=== PATIENT | male | born 1955 | race Caucasian/White ===

== ENCOUNTER 2024-11-02 20:44 | Emergency (ER) | payer MEDICARE, SELFPAY ==
[2024-11-02 20:49] VITALS: BP 157/83; PULSE 84; RESP 18; TEMP 37.4; O2SAT 94; BMI 18.8
--- NOTE | 2024-11-02 21:02 | XR_ITS ---
Examination:Right hip AP, lateral, AP pelvis 3 views Technique: Hip AP lateral, AP pelvis, 3 views Exam date and time:November 02, 2024 10:25 PM INDICATIONS: Patient fell yesterday with injury to the hip, hip pain. FINDINGS: Acute angulated intertrochanteric fracture right hip Avulsion of the lesser trochanter No dislocation of the hip Left hip bones of the pelvis intact IMPRESSION: Acute intertrochanteric fracture right hip.
--- NOTE | 2024-11-02 21:02 | XR_ITS ---
Examination: Right femur 2 views TECHNIQUE: AP lateral right femur 2 views Date and time: November 02, 2024 1027 hours INDICATIONS: Patient fell 1 day ago with injury to the femur, hip pain FINDINGS: Acute angulated intertrochanteric fracture right hip A portion of the lesser trochanter No dislocation Shaft of the femur are intact IMPRESSION: Acute intertrochanteric fracture right hip
--- NOTE | 2024-11-02 21:27 | PD.EDEXREM ---
ED Extremity Problem RME/HPI General Chief complaint: Hip Injury/Pain Stated complaint: HIP PAIN Time Seen by Provider: 11/02/24 20:59 Arrival date/time: 11/02/24 20:44 RME / HPI RME / HPI Narrative: 69-year-old male patient homeless, with significant history of COPD was brought in by EMS for evaluation regarding ground-level fall. Patient sustained a fall yesterday onto concrete resulting to pain to the right hip resulting to deformity, swelling, severity moderate. Patient denies any head injury or other injury. Patient is unable to ambulate due to pain. No medication was taken prior to arrival. Related Data Previous Rx's ?Medication ?Instructions ?Recorded albuterol sulfate 90 mcg/actuation 2 inh inhalation Q4H PRN shortness 04/20/22 aerosol inhaler of breath or wheezing #8.5 grams albuterol sulfate 90 mcg/actuation 2 inh inhalation Q4H PRN shortness 04/26/22 breath activated powder inhaler of breath or wheezing #1 ea amoxicillin 875 mg-potassium 1 tab PO BID #14 tabs 04/26/22 clavulanate 125 mg tablet doxycycline hyclate 100 mg capsule 100 mg PO BID #14 caps 04/26/22 prednisone 50 mg tablet 50 mg PO QDAY #7 tabs 06/18/22 albuterol sulfate 90 mcg/actuation 2 puff inhalation Q4H PRN 05/03/23 aerosol inhaler shortness of breath or wheezing #8.5 grams ciprofloxacin HCl 500 mg tablet 500 mg PO BID #20 tabs 05/03/23 Allergies Allergy/AdvReac Type Severity Reaction Status Date / Time No Known Allergies Allergy Verified 04/20/22 16:08 Review of Systems Review of Systems Narrative Review of Systems: Review of system reviewed and within normal limits except mentioned in HPI ED Exam Narrative Physical exam: VITAL SIGNS: Reviewed. GENERAL APPEARANCE: Alert and interactive, follows commands, no acute distress, HEAD AND FACE: Non-traumatic. ENT: PERRL, pink conjunctivitis, eyelid no trauma, Mucous membrane moist. NECK: Supple, nontender, no nuchal rigidity. CHEST: No tenderness, no crepitus, no paradoxical movement, no retractions. LUNGS: Clear, well ventilated, symmetric, no rales, no wheezing, no ronchi, no stridor, good breath sounds bilaterally. HEART: Regular rate, regular rhythm, no murmur, no gallops. ABDOMEN: Soft, positive bowel sounds, nondistended, no guarding, nontender, no rebound, no masses, RECTAL: Deferred. GENITAL: Deferred. NEUROLOGICAL: Gross motor function intact sensory function intact, Appropriate for age. MUSCULOSKELETAL: low back nontender, full range of motion. EXTREMITIES: Right hip swelling, deformity, tenderness, external rotated, with limitation range of motion. Distal neurovascular status intact SKIN: Color pink, dry, no rash, no lacerations, no abrasions, no contusions. LYMPHATICS: Deferred. Course Quality Measures none Orders Category Date Time Status XR femur RT 2V Stat Exams 11/02/24 21:02 Completed XR hip RT w pelvis 2-3V Stat Exams 11/02/24 21:02 Completed BMP [Basic Metabolic Panel] Stat Lab 11/02/24 21:40 Completed CBC Stat Lab 11/02/24 21:40 Completed Drug Screen,Urine Stat Lab 11/03/24 01:10 Completed PT [Prothrombin Time with INR] Stat Lab 11/02/24 21:40 Completed PTT [Partial Thromboplastin Time] Stat Lab 11/02/24 21:40 Completed Ketorolac Inj [Toradol Inj] Med 11/02/24 23:20 Discontinued 30 mg IVP X1 ONE MethylPREDNISolone.* [SoluMEDROL Inj] Med 11/03/24 01:04 Discontinued 125 mg IVP X1 ONE Morphine Inj Med 11/02/24 21:32 Discontinued 4 mg IVP X1 ONE Ondansetron Odt [Zofran Odt] Med 11/02/24 21:32 Discontinued 4 mg PO X1 ONE Vital Signs Vital signs: Vital Signs Temperature 99.3 F 11/02/24 20:49 Pulse Rate 84 11/02/24 20:49 Respiratory Rate 18 11/02/24 20:49 Blood Pressure 157/83 H 11/02/24 20:49 Pulse Oximetry (%) 94 L 11/02/24 20:49 Oxygen Delivery Method Room Air 11/02/24 20:49 Extremity Problem MDM Narrative MDM Narrative:: 69-year-old male patient homeless, with significant history of COPD was brought in by EMS for evaluation regarding ground-level fall. Patient sustained a fall yesterday onto concrete resulting to pain to the right hip resulting to deformity, swelling, severity moderate. Patient denies any head injury or other injury. Patient is unable to ambulate due to pain. No medication was taken prior to arrival. X-ray of the right hip showed intertrochanteric fracture with angulation. There is of the labs unremarkable. Patient is to be transferred to higher level of care with to have an orthopedic surgeon on-call today. Care transfered to Dr Funez for final disposition Patient data External records reviewed:: None Clinical information provided by:: patient Social determinants that could affect healthcare access:: none Patient has the following chronic illnesses:: COPD How is presenting disease/condition affected by chronic disease/condition?: uneffected by Evaluation data The following diagnostics were reviewed and interpreted by me:: lab results and radiology exam(s) Lab and/or radiology exams considered but not ordered:: None Interpretation Summary: See results MDM Medications / Prescriptions Medications or Prescriptions considered but not ordered:: None Medication administrations:: Medication Administration History Discontinued Medications Ketorolac Tromethamine (Ketorolac Inj 30 Mg/Ml Vial) 30 mg IVP X1 ONE Stop: 11/02/24 23:21 Last Admin: 11/03/24 02:47 Dose: 30 mg Documented By: SE Methylprednisolone Sodium Succinate (Methylprednisolone Sod Succ 62.5 Mg/Ml 2ml Vial) 125 mg IVP X1 ONE Stop: 11/03/24 01:05 Last Admin: 11/03/24 02:48 Dose: 125 mg Documented By: SE Morphine Sulfate (Morphine Sulf Inj 10 Mg/Ml Vial) 4 mg IVP X1 ONE Stop: 11/02/24 21:33 Last Admin: 11/02/24 21:58 Dose: 4 mg Documented By: MM Ondansetron HCl (Ondansetron Odt 4 Mg Tabrap) 4 mg PO X1 ONE; Protocol Stop: 11/02/24 21:33 Last Admin: 11/02/24 21:59 Dose: 4 mg Documented By: MM Morphine, Solu-Medrol, Toradol, and Zofran Consultations Consultation(s) initiated? (list below): No Diagnosis Extremity Problem Differential Diagnosis: other (Femur fracture hip fracture pelvic fracture) Most likely diagnosis given after review of the tests above:: Closed intertrochanteric fracture of the right hip Admission Indicated Admission indicated?: not indicated Admission Request Was there a request for admission?: No Disposition Plan Disposition Plan: Transfer Discharge Plan Plan Patient Disposition: Xfer Acute Care [facility] Facility Pt Being Transferred to: [facility] [place] Service Needed for Transfer: Orthopedics Discharge Disposition comment: Accepted by Dr. Pop, trauma surgeon Patient condition on transfer: Stable Prescriptions/Referrals Prescriptions/Med Rec: No Action albuterol sulfate 90 mcg/actuation HFA aerosol inhaler 2 inh inhalation Q4H PRN (Reason: shortness of breath or wheezing) Qty: 8.5 0RF albuterol sulfate 90 mcg/actuation HFA aerosol inhaler 2 puff inhalation Q4H PRN (Reason: shortness of breath or wheezing) Qty: 8.5 0RF ciprofloxacin HCl 500 mg tablet 500 mg PO BID Qty: 20 0RF doxycycline hyclate 100 mg capsule 100 mg PO BID Qty: 14 0RF amoxicillin-pot clavulanate 875-125 mg tablet 1 tab PO BID Qty: 14 0RF albuterol sulfate 90 mcg/actuation aerosol powdr breath activated 2 inh inhalation Q4H PRN (Reason: shortness of breath or wheezing) Qty: 1 1RF prednisone 50 mg tablet 50 mg PO QDAY Qty: 7 0RF Referrals: Oracio Diaz MD [Primary Care Provider] - In 1 week Problem List Clinical Impression: Closed intertrochanteric fracture of right hip, History of COPD, Positive urine drug screen Patient/Caregiver Discharge Instructions Print Language: Swazi Stand Alone Forms: [facility] Award Info., Patient Portal Info Letter
[2024-11-02 21:38] VITALS: PULSE 81; RESP 18; O2SAT 96
[2024-11-02] MEDS: MORPHINE SULF INJ 10 MG/ML VIAL 4 MG IVP (21:58)
[2024-11-02] MEDS: ONDANSETRON ODT 4 MG TABRAP PO (21:59)
[2024-11-02 22:06] LABS: Basophils % (Auto) 0 % (0-2.5); Eosinophils % (Auto) 0 % (0-10); Hematocrit 37.9 % (41.0-53.0); Hemoglobin 12.6 g/dL (13.5-16.0); Immature Granulocytes % (Auto) 0 % (0-0); Immature Granulocytes Auto 0.05 Thou/mm3 (0.00-0.00); Lymphocytes # (Auto) 1.7 Thou/mm3 (1.0-4.8); Lymphocytes % (Auto) 15 % (10-50); Mean Corpuscular HGB Conc 33.2 g/dl (31.0-37.0); Mean Corpuscular Hemoglobin 29.9 pg (25.0-35.0); Mean Corpuscular Volume 90 fL (80-100); Monocytes # (Auto) 1.1 Thou/mm3 (0.0-0.8); Monocytes % (Auto) 10 % (0-12); Neutrophils # (Auto) 8.5 Thou/mm3 (1.8-7.7); Neutrophils % (Auto) 75 % (37-80); Nucleated Red Blood Cell % 0 /100 WBC (0); Platelet Count 321 Thou/mm3 (140-440); RDW Standard Deviation 46.9 fL (35.1-43.9); Red Blood Count 4.21 Miln/mm3 (4.50-5.90); White Blood Count 11.4 Thou/mm3 (3.8-10.6)
[2024-11-02 22:20] LABS: Anion Gap 11 (7-16); BUN/Creatinine Ratio 15 Ratio (12-20); Blood Urea Nitrogen 20 mg/dL (9-23); Calcium 8.9 mg/dL (8.3-10.6); Chloride 101 mMol/L (98-107); Creatinine (Component) 1.3 mg/dL (0.6-1.3); Estimated Creatinine Clearance 42.5 mL/min (>60); Glucose 101 mg/dL (74-106); Osmolality,Calculated 278 (275-295); Potassium 3.7 mMol/L (3.4-5.1); Sodium 138 mMol/L (136-145); eGFR > 60 See Note
[2024-11-02 22:22] LABS: INR 1.2 (0.9-1.3); Partial Thromboplastin Time 30.5 Seconds (22.0-36.0); Prothrombin Time 12.8 Seconds (9.0-12.2)
[2024-11-02 23:02] VITALS: BP 153/79; PULSE 83; RESP 18; TEMP 37.7; O2SAT 90
--- NOTE | 2024-11-03 00:31 | EDNOTE_ITS ---
Emergency Room Addendum Addendum Narrative: 2300: Care assumed from Jorje Ontiveros NP. Past medical, surgical, social and family history reviewed. Vitals and home medications reviewed. Results and treatment plan discussed. I will assume the care of the patient at this time and will follow the patient, pending transfer for orthopedic surgery. Please refer to the emergency department record for history and examination from initial visit. 0019: Spoke with [facility]'s transfer center. Awaiting callback at this time. 0048: Discussed case with Dr. Simpson from orthopedic surgery at [facility] regarding transfer. Discussed patients ED course, exam findings, labs, and radiology results. After having an extensive conversation with him, he is requesting the patient to get a drug screen before he can accept the patient for transfer. States that if the patient is positive for any illicit drugs, he does not feel comfortable accepting the patient. UDS is positive for opiates, methamphetamines, and marijuana. 0307: Spoke with Dr. Simpson from orthopedic surgery at [facility], who declines to accept the patient for transfer due to being positive for methamphetamines. 0341: Spoke with [facility]'s transfer center. Awaiting callback. 0421: Dr. Pop, trauma surgeon from [facility], accepts the patient for transfer.
--- NOTE | 2024-11-03 01:03 | PC.NURSE ---
8000 [facility] CONTACTED PKT SENT. 2842 [facility] SPEAKING WITH DR LIANG AT THIS TIME.
[2024-11-03 01:11] VITALS: PULSE 80; RESP 18; O2SAT 90
[2024-11-03 02:01] LABS: Amphetamine/Methamp Scrn,U Positive (Negative); Barbiturate Screen,Urine Negative (Negative); Benzodiazepines Screen,Urine Negative (Negative); Benzoylecgonine Screen, Ur Negative (Negative); Opiate Screen,Urine Positive (Negative); THC Screen,Urine Positive (Negative)
--- NOTE | 2024-11-03 02:22 | PC.NURSE ---
0216 TOX SCREEN SENT TO [facility] ASKED FOR BY DR BLEVINS.
[2024-11-03] MEDS: KETOROLAC INJ 30 MG/ML VIAL IVP (02:47)
[2024-11-03] MEDS: MethylPREDNISolone SOD SUCC 62.5 MG/ML 2ML VIAL 125 MG IVP (02:48)
--- NOTE | 2024-11-03 03:09 | PC.NURSE ---
0309 DR BLEVINS WITH [facility] DENIES PT DUE TO PT TOXICOLOGY SCREEN.
[2024-11-03 03:13] LABS: Fentanyl Screen,Urine Negative (Negative)
--- NOTE | 2024-11-03 03:41 | PC.NURSE ---
0339 [facility] CONTACT[facility] AT THIS TIME, PKT SENT.
[2024-11-03 03:44] VITALS: BP 148/81; PULSE 74; RESP 18; TEMP 37.2; O2SAT 95
--- NOTE | 2024-11-03 05:20 | PC.NURSE ---
0520 REPORT CALLED TO [facility] SPOKE WITH NURA.
--- NOTE | 2024-11-03 05:30 | PC.NURSE ---
0419 PT ACEEPTED TO [facility] BY TRAUMA SURGEON DR COCHRAN. REPORT TO [phone].
== END 2024-11-03 05:23 | disposition short-term general hospital (02) ==
PROVIDERS: Emergency Provider Emergency Medicine; PCP Family Medicine
DX: S72.141A Displaced intertrochanteric fracture of right femur, initial encounter for closed fracture (principal); W18.30XA Fall on same level, unspecified, initial encounter; Z59.00 Homelessness unspecified; Z75.1 Person awaiting admission to adequate facility elsewhere
CPT/HCPCS: 36415; 73502; 73552; 80048; 80307; 85025; 85610; 85730; 96374; 99285; J1885; J2270; J2919; Q0162

== ENCOUNTER → 2024-12-27 | Outpatient (CLI) | payer MEDICARE, MEDICAID, SELFPAY ==
--- NOTE | 2024-12-27 14:57 | XR_ITS ---
Examination: CT chest, without intravenous contrast. Sagittal and coronal 2-D reconstructions. Exam date and time: December 27, at 2025, 1547 hours INDICATIONS: Smoking history 40 years CTDI:vol (mGy) 7.06 DLP: (mGycm) 268 Technique: Multiple 3.0 mm axial sections of the chest to been obtained. Bone and lung density settings are obtained. Sagittal and coronal 2-D reconstructions have been obtained. Low dose protocols were performed. One or more of the following dose reduction techniques were used; automated exposure control, adjustment of the mA and/or KV according to patient size, use of iterative reconstruction technique. Findings: No thoracic aortic aneurysm dilatation Pulmonary artery segments are not enlarged No paratracheal tracheobronchial or bronchopulmonary adenopathy 4 mm pulmonary nodule anterior segment right upper lobe image 207 3 mm pulmonary nodule left upper lobe image 206 Calcified granulomas 5 mm pulmonary nodule right lower lobe image 283 COPD with areas of airspace destruction No visualized liver or splenic lesion No pancreatic mass No extrahepatic biliary tract dilatation 2 mm right renal calculus IMPRESSION: Subcentimeter pulmonary nodules as above, with this study as baseline recommend 6 month follow-up CT chest without contrast
== END | disposition home or self-care (01) ==
PROVIDERS: PCP Hospitalist; Referring Provider Hospitalist; Visit Provider Hospitalist
DX: R91.8 Other nonspecific abnormal finding of lung field (principal); Z87.891 Personal history of nicotine dependence
CPT/HCPCS: 71250

== ENCOUNTER → 2025-03-13 14:35 | Emergency (ER) | payer MEDICARE, MEDICAID, SELFPAY ==
[2025-03-13 14:31] VITALS: PULSE 80; RESP 0; RESP 12; O2SAT 65; BMI 25.0
--- NOTE | 2025-03-13 14:52 | EDNOTE_ITS ---
ED CPR RME/HPI General Chief Complaint: Cardiac Arrest/CPR Stated Complaint: RESPIRATORY DEPRESS Arrival date/time: 03/13/25 14:39 RME / HPI RME / HPI narrative: 70 year old male presents to the ED BIBA as a code blue. Per the medic's report, the patient had an unwitnessed cardiac arrest. Bystanders found the patient slumped over in his wheelchair, unresponsive and not breathing, prompting calling 911. The downtime prior to EMS arrival is unknown. Upon EMS arrival at 13:45h, the patient was found sitting in his wheelchair, with no spontaneous respirations or cardiac activity. He had coffee-ground emesis in his mouth and clothing. EMS intubated the patient in the field, initiated CPR, and administered two doses of Narcan (due to a known history of heroin use) and epinephrine. Approximately 17 minutes after initiating CPR, ROSC obtained. An EKG performed showed concern for possible ST elevation. The patient was en route to [facility] ER when pulses were lost again, prompting rerouting to this facility. Per the medic's report, the patient received a total of five doses of epinephrine (last given at 14:25h), two rounds of Narcan, and sodium bicarbonate. Prehospital blood sugar was 106. Upon arrival to the ED at 14:28h, CPR was in progress, and the patient was asystolic on telemetry. Related Data Previous Rx's ?Medication ?Instructions ?Recorded albuterol sulfate 90 mcg/actuation 2 inh inhalation Q4 H PRN shortness 04/20/22 aerosol inhaler of breath or wheezing #8.5 g steffen albuterol sulfate 90 mcg/actuation 2 inh inhalation Q4 H PRN shortness 04/26/22 breath activated powder inhaler of breath or wheezing #1 ea amoxicillin 875 mg-potassium 1 tab PO BID #14 tabs clavulanate 125 mg tablet doxycycline hyclate 100 mg capsule 100 mg PO BID #14 c aps 04/26/22 prednisone 50 mg tablet 50 mg PO QDAY #7 tabs albuterol sulfate 90 mcg/actuation 2 puff inhalation Q 4H PRN 05/03/23 aerosol inhaler shortness of breath or wheez ing #8.5 grams ciprofloxacin HCl 500 mg tablet 500 mg PO BID #20 tabs 05/03/23 Allergies Allergy/AdvReac Type Severity Reaction Status Date / Time No Known Allergies Allergy Verified 04/20/22 16:08 Review of Systems Review of Systems Narrative Review of Systems: Unobtainable, patient arrived as a code blue. Past Medical History Past Medical History CARDIAC: Positive Hypertension RESPIRATORY: Positive Chronic Obstructive Pulmonary Disease (COPD) and Asthma (COPD) MUSCULOSKELETAL: Positive Musculoskeletal Disorders and Rheumatoid Arthritis Family History FAMILY HISTORY: Negative Family Cardiac Disorders Social History SMOKING STATUS: Unknown if ever smoked SUBSTANCE USE: marijuana, heroin and amphetamines ED Exam Narrative Physical exam: GEN. APPEARANCE: Patient arrived in cardiac-respiratory arrest with CPR in progress, bagged through ETT. HEENT: Normocephalic, atraumatic, no spontaneous eye movements, pupils are fixed and dilated, conjuctiva appear dry. Patient noted to have abundant foul smelling coffee-ground emesis in/on mouth and on clothing NECK: Supple, no JVD. CARDIOVASCULAR: No spontaneous cardiac activity, CPR in progress. ABDOMEN: Soft, mildly distended. EXTREMITIES: Flaccid. No edema. No signs of trauma. SKIN: Cool and dry, no rashes noted. No signs of trauma. NEURO: GCS is 3. Course Course Course Narrative: Bedside echocardiogram performed showing minimal ineffective cardiac movement. Given prolonged downtime with unwitnessed arrest, decision made to cease further efforts. Time of 1435hrs. Quality Measures none Vital Signs Vital signs: Vital Signs Respiratory Rate 0 L 03/13/25 14:31 Oxygen Delivery Method Mechanical Ventilation 03/13/25 14:31 Cardiac Arrest / CPR MDM Narrative MDM Narrative:: Valeria Zhao am scribing for and in the presence of Dr. Vyas. Patient data External records reviewed:: [facility] previous records and EMS form Clinical information provided by:: patient and EMS Social determinants that could affect healthcare access:: substance use (known heroin use ) Patient has the following chronic illnesses:: Per EMR review, patient has history of COPD, rheumatoid arthritis, heroin/meth/marijuana use, homelessness, How is presenting disease/condition affected by chronic disease/condition?: exacerbated by Evaluation data The following diagnostics were reviewed and interpreted by me:: other (specify) (No diagnostics performed ) Lab and/or radiology exams considered but not ordered:: None Interpretation Summary: N/A Medications / Prescriptions Medications or Prescriptions considered but not ordered:: None Medication administrations:: See above Consultations Consultation(s) initiated? (list below): No Diagnosis Cardiac arrest differential diagnosis: acute massive pulmonary embolism, acute respiratory failure, acute myocardial infarction, cardiac arrest and sudden cardiac Most likely diagnosis given after review of the tests above:: Cardiac arrest GI bleed Admission Indicated Admission indicated?: not indicated Explain why admission is indicated or not indicated:: Pt Admission Request Was there a request for admission?: No Disposition Plan Disposition Plan: other (specify) (Patient ) Discharge Plan Plan Patient Disposition: Prescriptions/Referrals Referrals: No Primary/Family,Physician [Primary Care Provider] - In 1 week Problem List Clinical Impression: Cardiac arrest, GI (gastrointestinal bleed) Patient/Caregiver Discharge Instructions Print Language: Ukrainian
--- NOTE | 2025-03-13 15:04 | PC.CC ---
1505-Pt was BIBA on a Code Blue. Pt at 1439. 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 ASW contacted [facility] and spoke with Rabia who stated she will send someone over [employer] to picker tender helper the body and will call with an ETA.
== END | disposition expired ==
PROVIDERS: Emergency Provider Family Medicine
DX: K92.2 Gastrointestinal hemorrhage, unspecified (principal); I46.9 Cardiac arrest, cause unspecified
CPT/HCPCS: 99281; J0168